=== PATIENT | female | born 2000 | race Two or more races ===

== ENCOUNTER → 2019-02-05 | Outpatient (CLI) | payer BC ==
[~2019-02-05] MED LIST: LORA5SOL78 PO
--- NOTE | 2019-02-05 15:38 | RADIOLOGY IMAGING REPORT ---
FACILITY: [facility] PATIENT NAME: Jennifer Delgado : 2000 MR: [id number] V: [id number] EXAM DATE: [id number] ORDERING PHYSICIAN: GENEVA SANDOVAL TECHNOLOGIST: Location: [facility] Patient: Jennifer Delgado : 2000 Visit/Account:[id number] Date of Sevice: 02/05/2019 Technique: KNEE 4 VIEW LEFT HISTORY: Pain Comparison studies: None FINDINGS: No acute fracture. The alignment of the left knee is preserved. No knee joint effusion. IMPRESSION: 1. No acute osseous process. Report Dictated By: Husam Johns DO at 02/05/2019 3:31 PM Report E-Signed By: Husam Johns DO at 02/05/2019 3:32 PM WSN:[id number]
== END ==
LOC: RAD 14:47
PROVIDERS: ATTEND Nurse Practitioner Family
DX: M25.562 Pain in left knee (principal)
CPT/HCPCS: 73564

== ENCOUNTER → 2019-03-29 | Outpatient (CLI) | payer BC ==
--- NOTE | 2019-03-29 13:28 | RADIOLOGY IMAGING REPORT ---
FACILITY: [facility] PATIENT NAME: Jennifer Delgado : 2000 MR: [id number] V: [id number] EXAM DATE: ORDERING PHYSICIAN: KATHERINE ALEJO TECHNOLOGIST: Location: Patient: Jennifer Delgado : 2000 Visit/Account:[id number] Date of Sevice: 03/29/2019 Venous Doppler ultrasound right lower extremity Indication: Right leg pain and tightness. Comparison: None Available Findings: Duplex Doppler and color flow imaging was performed. The common femoral, femoral, and popl iteal veins are all patent and compressible with normal Doppler wave forms. There are normal respons es to augmentation. The posterior tibial and peroneal veins are patent in the calf. The proximal greater saphenous vein i s also normal. IMPRESSION: 1. No evidence of deep venous thrombosis of the right lower extremity. Report Dictated By: Husam Johns DO at 03/29/2019 1:12 PM Report E-Signed By: Husam Johns DO at 03/29/2019 1:20 PM WSN:[id number]
== END ==
LOC: US 12:05
PROVIDERS: ATTEND Family Medicine
DX: R22.41 Localized swelling, mass and lump, right lower limb (principal); M79.604 Pain in right leg